=== PATIENT | male | born 1985 | race Two or more races ===

== ENCOUNTER 2022-10-07 19:36 | Emergency (ER) | payer MEDICAID, OTHER ==
[~2022-10-07] VITALS: Ht 172.7 cm; Wt 99.0 kg
[2022-10-07 19:36] VITALS: BP 121/77
[2022-10-07] MEDS ORDERED: KETOROLAC TROMETH 60MG/2ML VIAL IM ONE (21:30)
[2022-10-07] MEDS ORDERED: IBUP800T27 PO (21:32)
[2022-10-07] MEDS ORDERED: CYCL-837 PO (21:32)
== END 2022-10-08 05:28 | disposition home or self-care (01) ==
LOC: ER 19:38
DX: S39.012A Strain of muscle, fascia and tendon of lower back, initial encounter (principal); R51.9 Headache, unspecified; J45.909 Unspecified asthma, uncomplicated; F12.90 Cannabis use, unspecified, uncomplicated; V43.62XA Car passenger injured in collision with other type car in traffic accident, initial encounter; Y93.89 Activity, other specified; Y92.89 Other specified places as the place of occurrence of the external cause; Y99.8 Other external cause status
CPT/HCPCS: 96372; 99283; J1885

== ENCOUNTER 2022-10-11 14:59 | Emergency (ER) | payer MEDICAID ==
[~2022-10-11] VITALS: Ht 172.7 cm; Wt 95.4 kg
[~2022-10-11 14:59] MED LIST: CYCL-837 PO; IBUP800T27 PO
[2022-10-11] MEDS ORDERED: IBUP800T26 PO (18:24)
[2022-10-11] MEDS ORDERED: CYCL-838 PO (18:24)
[2022-10-11 21:30] VITALS: BP 135/76
== END 2022-10-11 22:14 | disposition home or self-care (01) ==
LOC: ER 15:04
DX: S29.012A Strain of muscle and tendon of back wall of thorax, initial encounter (principal); S39.012A Strain of muscle, fascia and tendon of lower back, initial encounter; J45.909 Unspecified asthma, uncomplicated; Z79.1 Long term (current) use of non-steroidal anti-inflammatories (NSAID); Z79.899 Other long term (current) drug therapy; V49.9XXA Car occupant (driver) (passenger) injured in unspecified traffic accident, initial encounter; Y93.89 Activity, other specified; Y92.410 Unspecified street and highway as the place of occurrence of the external cause; Y99.8 Other external cause status
CPT/HCPCS: 72040; 72070; 72100

== ENCOUNTER 2024-12-14 21:20 | Emergency (ER) | payer MEDICAID ==
[~2024-12-14] VITALS: Ht 170.2 cm; Wt 86.1 kg
[~2024-12-14 21:20] MED LIST changes: +CYCL-838 PO; +IBUP-1455 PO; +IBUP-1456 PO; -IBUP800T27 PO
[2024-12-15 01:01] VITALS: BP 117/75; PULSE 67; RESP 12; TEMP 98; O2SAT 96
[2024-12-15] MEDS ORDERED: AZIT-43 PO (15:56)
[2024-12-15] MEDS ORDERED: IBUP-1454 PO (15:56)
[2024-12-15] MEDS ORDERED: PROM1SOL4 PO (16:07)
== END 2024-12-15 04:06 | disposition left against medical advice (07) ==
LOC: ER 21:20
DX: R51.9 Headache, unspecified (principal); R22.0 Localized swelling, mass and lump, head; Z53.21 Procedure and treatment not carried out due to patient leaving prior to being seen by health care provider

== ENCOUNTER 2024-12-15 13:15 | Emergency (ER) | payer MEDICAID ==
[~2024-12-15] VITALS: Ht 172.7 cm; Wt 85.1 kg
[2024-12-15 14:36] VITALS: BP 121/71; PULSE 51; RESP 16; TEMP 98.2; O2SAT 100
[2024-12-15] MEDS: methylPREDNISolone SOD SUCC 125 MG/2 ML VL IM ONE (15:17)
[2024-12-15 15:50] LABS: Rapid Strep A Screen-Throat Negative
[2024-12-15] MEDS ORDERED: IBUP-1454 PO (15:56)
[2024-12-15] MEDS ORDERED: AZIT-43 PO (15:56)
--- NOTE | 2024-12-15 15:56 | ED.PDOC ---
Eye-HPI HPI Comments This is a pleasant 39-year-old male with no pertinent MHx presents with a chief complaint of throat pain all Concerned about possible strep throat Able to get minimal relief with [id number] Tylenol and Motrin Denies chest pain shortness of breath Denies inability to move neck Denies difficulty swallowing nor persistent salivation Denies fevers chills night sweats Denies persistent cough, runny nose, congestion Denies loss of appetite, unintentional weight loss over the past 3 months Denies voice changes Denies history of asthma or seasonal allergies Chief Complaint: Face pain Time Seen by MD: 14:33 Primary Care Provider: NONE Reviewed Notes: Nurses Notes, Medications, Allergies Allergies: Coded Allergies: NO KNOWN ALLERGIES (Unverified , 10/07/22) Home Meds Active Scripts Cyclobenzaprine Hcl (CYCLOBENZAPRINE HCL) 7.5 Mg Tab, 7.5 MG PO BID PRN, #30 TAB Prov:DEIRDRE YUENP 10/11/22 Ibuprofen Micronized (Ibuprofen) 800 Mg Tab, 800 MG PO TID PRN, #40 TAB Prov:DEIRDRE YUEN 10/11/22 Cyclobenzaprine Hcl (Cyclobenzaprine Hcl) 5 Mg Tab, 1 TAB PO QPM PRN, #14 TAB 0 Refills Prov:DANILO WEEKS 10/07/22 Ibuprofen (Ibuprofen) 800 Mg Tab, 1 TAB PO TID PRN, #30 TAB 0 Refills Prov:DANILO WEEKS 10/07/22 Information Source: Patient Mode of Arrival: Ambulatory Past Medical History PAST MEDICAL HISTORY: Asthma Surgical History: Denies all surgeries Family History Family History: Unknown Social History Smoker: Other Alcohol: Denies ETOH Use Drugs: Marijuana Lives In: Home All Other Systems: Reviewed and Negative (Per HPI) Physical Exam General Appearance: No Apparent Distress, Normal HEENT: Normal ENT Inspection, Pharyngeal Erythema (Moist mucous membranes, uvula midline, no airway obstruction, bilateral tonsillar exudate, no strawberry), TMs Normal Neck: Full Range of Motion, Non-Tender, Normal, Normal Inspection Respiratory: Chest Non-Tender, Lungs Clear, No Accessory Muscle Use, No Respiratory Distress, Normal Breath Sounds Cardiovascular: No Edema, No JVD, No Murmur, No Gallop, Normal Peripheral Pu lses, Regular Rate/Rhythm Breast Exam: Deferred Gastrointestinal: No Organomegaly, Non Tender, No Pulsatile Mass, Normal Bowel Sounds, Soft Genitalia: Deferred Pelvic: Deferred Rectal: Deferred Extremities: No calf tenderness, Normal capillary refill, Normal inspection, Normal range of motion, Non-tender, No pedal edema Musculoskeletal : Apperance: Normal Neurologic: Alert, 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 Was a procedure done?: No EENT DIFF Eye: Other Sore Throat: Streptococcal, Viral Pharyngitis, URI X-Ray, Labs, Meds, VS Vital Signs Date Time Temp Pulse Resp B/P (MAP) Pulse Ox O2 Delivery O2 Flow Rate FiO2 12/15/24 14:36 98.2 51 16 121/71 (88) 100 98.2 12/15/24 13:52 98.2 51 16 121/71 (88) 100 98.2 Lab Test 12/15/24 14:49 Range/Units Group A Streptococcus Rapid Negative Current Medications Medications (Trade) Dose Ordered Sig/Rama Route Start Time Stop Time Status Last Admin Methylprednisolone Sodium Succinate (Solu Medrol) 125 mg ONCE ONCE IM 12/15/24 15:00 12/15/24 15:01 DC 12/15/24 15:17 X-Ray, Labs, Meds, VS Comment Patient presents with a chief complaint of a sore throat. After review of systems and physical examination there are no no concerns or red flags for peritonsillar abscess, abscess formation, epiglottitis, retropharyngeal abscess formation or airway obstruction. No concerns for peritonsillar abscess as patient denies severe sore throat, muffled or hot potato voice, and difficulty handling secretions. No concerns for abscess formation as the soft palate is symmetrical and there is no displacement of the uvula and the uvula is also midline. No concerns for epiglottitis as patient denies severe sore throat, dysphagia, muffled voice, patient is not drooling nor is patient in tripod position. No signs of retropharyngeal abscess formation as patient has no fevers, stiff neck, drooling no stridor No signs of airway obstruction as patient denies sensation of foreign body vital signs stable on room air. Ordered rapid strep test and results were negative Exam/test findings consistent with strep throat infection. Encouraged fluid intake Acetaminophen to reduce pain/fever NSAIDs to reduce pain/fever Nonpharmacological recommendations given Warm salt water gargles Throat lozenges Humidified air Patient is stable for discharge at this time. External notes reviewed. Test results and diagnostic imaging interpreted. All diagnostic findings, discharge care, education and instructions provided Follow-up with PCP in 2 to 3 days Patient verbalized understanding and agreed to treatment plan Vital signs stable, afebrile, no acute distress noted Patient ambulatory with strong steady gait Advised to return precautions for any new or worsening symptoms, return to ER immediately for re-evaluation Patient is aware that the purpose of this visit was for an acute medical emergency requiring emergent stabilization. Chronic conditions, including malignancies have not been ruled out. Patient is instructed to follow up with PCP as directed and discharge instructions for continued care and workup. If unable to arrange follow-up, patient is to return to the emergency department for reassessment. Patient (parent or legal guardian if applicable) was given verbal and written discharge instructions and acknowledges understanding. Time of 1ST Reevaluation: 15:54 Reevaluation 1ST: Improved Patient Education/Counseling: Diagnosis, Treatment Family Education/Counseling: Diagnosis, Treatment Departure 1 Departure Time of Disposition: 15:55 Impression: Primary Impression: Tonsillar exudate Disposition: HOME / SELF CARE / HOMELESS Condition: Fair e-Prescriptions Ibuprofen (Ibuprofen) 600 Mg Tab 1 TAB PO TID for 10 Days, #30 TAB 0 Refills Prov: LETHA LANDAVERDE NP 12/15/24 Azithromycin (Azithromycin) 250 Mg Tab 250 MG PO DAILY MDD 500 for 5 Days, #6 TAB 0 Refills 2 TABLETS ORALLY ON DAY ONE, THEN 1 TABLET ORALLY DAILY FOR 4 DAYS Prov: LETHA LANDAVERDE NP 12/15/24 Critical Care Note Critical Care Time?: No Stability Stability form required: No Heart Score Heart Score: Heart Score Response (Comments) Value History N/A 0 EKG N/A 0 Age N/A 0 Risk Factors N/A 0 Troponin N/A 0 Total 0 LETHA LANDAVERDE NP Dec 15, 2024 15:56
[2024-12-15] MEDS ORDERED: PROM1SOL4 PO (16:07)
== END 2024-12-15 16:01 | disposition home or self-care (01) ==
LOC: ER 13:27
DX: J35.8 Other chronic diseases of tonsils and adenoids (principal); J45.909 Unspecified asthma, uncomplicated; F17.200 Nicotine dependence, unspecified, uncomplicated; F12.90 Cannabis use, unspecified, uncomplicated
CPT/HCPCS: 87070; 87880; 96372; 99283; J2919